=== PATIENT | male | born 1965 | race Caucasian/White ===

== ENCOUNTER 2018-10-11 11:13 | Inpatient (IN) | payer MEDICAID, OTHER ==
[~2018-10-11] VITALS: Ht 177.8 cm; Wt 54.4 kg
[~2018-10-11 11:13] MED LIST: BENAZEPRIL; Depakote; FERROUS SULFATE; FOLIC ACID; GABAPENTIN; ISONIAZID; LIPITOR; SEROQUEL; TRAZODONE; VITAMIN B6; WELLBUTRIN; [UNRECOGNIZED DRUG - OTHER]; [UNRECOGNIZED DRUG - OTHER]
[2018-10-11] MEDS ORDERED: SODIUM CHLORIDE 0.9% 1,000 ML IV ONE (11:45)
[2018-10-11 13:00] LABS: BASOPHILS % 0.4 % (0.0-2.0); EOSINOPHILS % 0.7 % (0.0-5.0); HEMATOCRIT. 33.5 % (42.0-52.0); HEMOGLOBIN. 11.4 g/dL (14.0-18.0); LYMPHOCYTES % 10.2 % (20.0-50.0); MEAN CORPUSCULAR HEMOGLOBIN 29.8 pg (28.0-32.0); MEAN CORPUSCULAR VOLUME 87.3 fL (80.0-94.0); MEAN PLATELET VOLUME 6.5 fl (7.4-10.4); NEUTROPHILS % 85.7 % (40.0-76.0); PLATELET 973 x1000/uL (130-400); RED BLOOD CELL COUNT 3.84 mill/uL (4.7-6.1)
[2018-10-11 13:04] LABS: CLARITY URINE TURBID (CLEAR); COLOR URINE DARK YELLOW (YELLOW); KETONES URINE NEGATIVE (NEGATIVE); LEUKOCYTE ESTERASE URINE NEGATIVE (NEGATIVE); NITRITE URINE NEGATIVE (NEGATIVE); OCCULT BLOOD URINE NEGATIVE (NEGATIVE); PROTEIN URINE TRACE (NEGATIVE); SPECIFIC GRAVITY URINE 1.023 (1.005-1.030)
[2018-10-11 13:11] LABS: CHLORIDE 98 mEq/L (98-107)
[2018-10-11] MEDS ORDERED: IOHEXOL-300 100 ML BOTTLE ONE (14:41)
[2018-10-11] MEDS ORDERED: AZITHROMYCIN 500 MG in DEXT 5% WATER 250 ML IV NR (16:00)
[2018-10-11] MEDS: CEFTRIAXONE 1 G PREMIX 50 ML IV NR ×2 (16:00→16:58)
[2018-10-11] MEDS ORDERED: POTASSIUM CHLORIDE 20MEQ TABLET SR PO NR (16:00)
[2018-10-11 18:00] VITALS: BP 127/70
[2018-10-11 18:41] VITALS: BP 127/70
[2018-10-11 20:00] VITALS: BP 109/63
[2018-10-11] MEDS ORDERED: ACETAMINOPHEN 325MG TABLET PO PRN (21:15)
[2018-10-11] MEDS ORDERED: ONDANSETRON HCL 4MG/2ML INJ IV PRN (21:15)
[2018-10-11] MEDS ORDERED: AZITHROMYCIN 500 MG in DEXT 5% WATER 250 ML IV SCH (21:15)
[2018-10-11] MEDS ORDERED: CEFTRIAXONE 1 G PREMIX 50 ML IV SCH (21:15)
[2018-10-11] MEDS: DIVALPROEX SODIUM 250MG ER TABLET PO SCH (22:42)
[2018-10-11] MEDS: TRAZODONE HCL 50MG TABLET PO SCH (22:42)
[2018-10-11] MEDS: QUETIAPINE FUMARATE 100MG TABLET PO SCH (22:42)
[2018-10-12] VITALS: BP 100/56
[2018-10-12 04:00] VITALS: BP 100/48
[2018-10-12 06:23] LABS: BASOPHILS % 0.6 % (0.0-2.0); EOSINOPHILS % 0.9 % (0.0-5.0); HEMATOCRIT. 28.2 % (42.0-52.0); HEMOGLOBIN. 9.6 g/dL (14.0-18.0); MEAN CORPUSCULAR HEMOGLOBIN 29.7 pg (28.0-32.0); MEAN CORPUSCULAR VOLUME 87.4 fL (80.0-94.0); MEAN PLATELET VOLUME 6.3 fl (7.4-10.4); MONOCYTES % 5.1 % (2.0-8.0); NEUTROPHILS % 84.4 % (40.0-76.0); PLATELET 763 x1000/uL (130-400); RED BLOOD CELL COUNT 3.22 mill/uL (4.7-6.1); RED CELL DISTRIBUTION WIDTH 13.7 % (11.6-14.6)
[2018-10-12 08:00] VITALS: BP 94/41
[2018-10-12] MEDS: QUETIAPINE FUMARATE 100MG TABLET PO SCH (08:36)
[2018-10-12] MEDS: DIVALPROEX SODIUM 250MG ER TABLET PO SCH (08:37)
[2018-10-12] MEDS: PANTOPRAZOLE SODIUM 40 MG/VIAL IV SCH (08:47)
[2018-10-12 09:37] LABS: CHLORIDE 103 mEq/L (98-107)
[2018-10-12 12:00] VITALS: BP 87/38
[2018-10-12] MEDS: SODIUM CHLORIDE 0.9% 1,000 ML IV SCH (13:33)
[2018-10-12 16:00] VITALS: BP 107/55
[2018-10-12] MEDS: AZITHROMYCIN 500 MG in DEXT 5% WATER 250 ML IV SCH (16:42)
[2018-10-12] MEDS: CEFTRIAXONE 1 G PREMIX 50 ML IV SCH (18:59)
[2018-10-12] MEDS: TRAZODONE HCL 50MG TABLET PO SCH (20:05)
[2018-10-12 20:36] VITALS: BP 104/54
[2018-10-13 00:32] VITALS: BP 104/65
[2018-10-13 04:00] VITALS: BP 110/69
[2018-10-13 07:27] LABS: HEMATOCRIT. 30.3 % (42.0-52.0); HEMOGLOBIN. 10.2 g/dL (14.0-18.0); MEAN CORPUSCULAR HEMOGLOBIN 29.2 pg (28.0-32.0); MEAN CORPUSCULAR VOLUME 86.4 fL (80.0-94.0); MEAN PLATELET VOLUME 6.1 fl (7.4-10.4); PLATELET 827 x1000/uL (130-400); RED CELL DISTRIBUTION WIDTH 13.9 % (11.6-14.6)
[2018-10-13 08:00] VITALS: BP 98/57
[2018-10-13 08:02] LABS: CHLORIDE 101 mEq/L (98-107)
[2018-10-13] MEDS: PANTOPRAZOLE SODIUM 40 MG/VIAL IV SCH (08:51)
[2018-10-13] MEDS: DIVALPROEX SODIUM 250MG ER TABLET PO SCH (08:51)
[2018-10-13] MEDS: QUETIAPINE FUMARATE 100MG TABLET PO SCH (08:51)
[2018-10-13 10:29] LABS: PLATELET ESTIMATE MARKEDLY INCREASED
[2018-10-13 11:23] LABS: TOTAL IRON BINDING CAPACITY 162 ug/dL (250-450)
[2018-10-13 11:41] LABS: FOLIC ACID (FOLATE) SERUM 3.8 ng/mL (>5.38)
[2018-10-13 12:00] VITALS: BP 113/51
[2018-10-13] MEDS: SODIUM CHLORIDE 0.9% 1,000 ML IV SCH (15:42)
[2018-10-13] MEDS: CEFTRIAXONE 1 G PREMIX 50 ML IV SCH (16:39)
[2018-10-13] MEDS ORDERED: BENZONATATE 100MG CAPSULE PO PRN (18:00)
[2018-10-13] MEDS: LACTOBACILLUS GG CAPSULE PO SCH (18:07)
[2018-10-13] MEDS: CYANOCOBALAMIN 1000MCG/ML VIAL IM SCH (18:08)
[2018-10-13] MEDS: FOLIC ACID 1MG TABLET PO SCH (18:08)
[2018-10-13] MEDS: AZITHROMYCIN 500 MG in DEXT 5% WATER 250 ML IV SCH (18:54)
[2018-10-13 20:00] VITALS: BP 109/62
[2018-10-13] MEDS: TRAZODONE HCL 50MG TABLET PO SCH (20:20)
[2018-10-14] VITALS: BP 107/55
[2018-10-14 04:00] VITALS: BP 97/55
[2018-10-14 07:23] LABS: HEMATOCRIT. 29.5 % (42.0-52.0); MEAN CORPUSCULAR HEMOGLOBIN 29.2 pg (28.0-32.0); MEAN CORPUSCULAR VOLUME 86.3 fL (80.0-94.0); MEAN PLATELET VOLUME 6.2 fl (7.4-10.4); PLATELET 775 x1000/uL (130-400); RED BLOOD CELL COUNT 3.42 mill/uL (4.7-6.1)
[2018-10-14 07:40] LABS: CHLORIDE 99 mEq/L (98-107)
[2018-10-14 08:00] VITALS: BP 103/53
[2018-10-14] MEDS: DIVALPROEX SODIUM 250MG ER TABLET PO SCH (08:37)
[2018-10-14] MEDS: LACTOBACILLUS GG CAPSULE PO SCH (08:37)
[2018-10-14] MEDS: QUETIAPINE FUMARATE 100MG TABLET PO SCH (08:37)
[2018-10-14] MEDS: FOLIC ACID 1MG TABLET PO SCH (08:37)
[2018-10-14] MEDS: CYANOCOBALAMIN 1000MCG/ML VIAL IM SCH (08:38)
[2018-10-14] MEDS ORDERED: FAMOTIDINE 20MG TABLET PO SCH (09:00)
[2018-10-14 10:32] VITALS: BP 103/53
[2018-10-14 16:01] LABS: PLATELET ESTIMATE MARKEDL
[2018-10-15 13:06] LABS: ABSOLUTE EOSINOPHILS 0.1 x10E3/uL (0.0-0.4); ABSOLUTE LYMPHOCYTES 0.6 x10E3/uL (0.7-3.1); ABSOLUTE MONOCYTES 0.5 x10E3/uL (0.1-0.9); ABSOLUTE NEUTROPHILS 9.1 x10E3/uL (1.4-7.0); BASOPHILS 0 % (Not Estab.); HEMATOCRIT 30.3 % (37.5-51.0); HEMOGLOBIN 9.9 g/dL (13.0-17.7); IMMATURE GRANULOCYTES 0 % (Not Estab.); LYMPHOCYTES 6 % (Not Estab.); MEAN CORPUSCULAR HEMOGLOBIN 28.5 pg (26.6-33.0); MEAN CORPUSCULAR HGB CONC. 32.7 g/dL (31.5-35.7); MEAN CORPUSCULAR VOLUME 87 fL (79-97); MONOCYTES 5 % (Not Estab.); NEUTROPHILS 88 % (Not Estab.); PLATELETS 661 x10E3/uL (150-379); RBC 3.47 x10E6/uL (4.14-5.80); WBC 10.4 x10E3/uL (3.4-10.8)
[2018-10-15 14:18] LABS: % CD 3 POS. LYMPHOCYTES 88.5 % (57.5-86.2); % CD 4 POS. LYMPHOCYTES 1.4 % (30.8-58.5); % CD 8 POS. LYMPH 86.7 % (12.0-35.5); ABSOLUTE CD 3 531 /uL (622-2402); ABSOLUTE CD 4 HELPER 8 /uL (359-1519); ABSOLUTE CD 8 SUPPRESSOR 520 /uL (109-897); CD4/CD8 RATIO 0.02 (0.92-3.72)
[2018-10-16 04:16] LABS: OVA & PARASITE EXAM Final report (.)
[2018-10-16 19:09] LABS: *HIV-1 RNA BY PCR 55880 copies/mL (.)
== END 2018-10-14 10:53 | disposition home or self-care (01) | DRG 247 ==
LOC: ER 11:13 → 6EST 15:11 → EDBEDREQSVC 15:13 → EDBEDREQ 15:13 → EDBEDREQTM 15:13 → ENRESERV 15:56
PROVIDERS: ADMIT Internal Medicine; ATTEND Internal Medicine
DX: K56.7 Ileus, unspecified (principal); J96.00 Acute respiratory failure, unspecified whether with hypoxia or hypercapnia; E43 Unspecified severe protein-calorie malnutrition; J18.9 Pneumonia, unspecified organism; E53.8 Deficiency of other specified B group vitamins; E88.09 Other disorders of plasma-protein metabolism, not elsewhere classified; K21.9 Gastro-esophageal reflux disease without esophagitis; F17.210 Nicotine dependence, cigarettes, uncomplicated; E87.6 Hypokalemia; D63.8 Anemia in other chronic diseases classified elsewhere; F31.9 Bipolar disorder, unspecified; F20.9 Schizophrenia, unspecified; Z91.14 Patient's other noncompliance with medication regimen; Z87.01 Personal history of pneumonia (recurrent); Z88.8 Allergy status to other drugs, medicaments and biological substances; Z68.1 Body mass index [BMI] 19.9 or less, adult
CPT/HCPCS: 36415; 71045; 74177; 80048; 82270; 82607; 82705; 82728; 82746; 83540; 83550; 83605; 83880; 84484; 86359; 86360; 87015; 87045; 87177; 87209; 87427; 87449; 87493; 87536; 89055; 93005; 96361; 96365; 99285; C9113; J0456; J0696; J3420; J7030; J7060; Q9967